=== PATIENT | female | born 1985 | race Caucasian/White ===

== ENCOUNTER 2016-08-27 16:08 | Emergency (ER) | payer OTHER ==
[2016-08-27 16:23] VITALS: BP 118/79
--- NOTE | 2016-08-27 16:37 | UC ---
Throat Pain/Nasal Sergio HPI - HPI Summary HPI Summary: complaint of sore throat that started 3 days ago nasal congestion has felt feverish and chills for 2 days -hasn't checked her temp intermittent headache denies coiugh and reatr pain has taken nyquil and dayquil without relief children have similiar illness - History of Current Complaint Chief Complaint: UCGeneralIllness Stated Complaint: SORE THROAT/HEADACHE/ABD PAIN Time Seen by Provider: 08/27/16 16:31 Hx Obtained From: Patient - Allergies/Home Medications Allergies/Adverse Reactions: Allergies Allergy/AdvReac Type Severity Reaction Status Date / Time No Known Allergies Allergy Verified 09/29/14 12:34 Home Medications: Home Medications Omeprazole CAP* [Prilosec CAP* 20 MG] 20 mg PO DAILY 08/27/16 [History Confirmed 08/27/16] Venlafaxine TAB (NF) [Effexor TAB (NF)] 20 mg PO DAILY 08/27/16 [History Confirmed 08/27/16] PMH/Surg Hx/FS Hx/Imm Hx Previously Healthy: Yes - Surgical History Surgical History: None - Family History Known Family History: Negative: Cardiac Disease, Hypertension, Diabetes - Social History Lives: With Family Alcohol Use: Occasionally Substance Use Type: None Smoking Status (MU): Former Smoker Review of Systems Constitutional: Chills Skin: Negative Eyes: Negative ENT: Sore Throat, Nasal Discharge Respiratory: Negative Cardiovascular: Negative Gastrointestinal: Negative Genitourinary: Negative Motor: Negative Neurovascular: Negative Musculoskeletal: Negative Neurological: Negative Psychological: Negative All Other Systems Reviewed And Are Negative: Yes Physical Exam Triage Information Reviewed: Yes Appearance: No Pain Distress, Well-Nourished, Obese Vital Signs: Initial Vital Signs Temp 98.9 F 08/27/16 16:17 Pulse 95 08/27/16 16:17 Resp 16 08/27/16 16:17 BP 118/79 08/27/16 16:17 Pulse Ox 100 08/27/16 16:17 Vital Signs Reviewed: Yes Eyes: Positive: Conjunctiva Clear ENT: Positive: Pharyngeal erythema, Nasal congestion, TMs normal, TM red, Tonsillar swelling, Tonsillar exudate Neck: Positive: Enlarged Nodes @ - cervical lymphadenopathy bilaterally Respiratory: Positive: Lungs clear, Normal breath sounds, No respiratory distress Cardiovascular: Positive: RRR, No Murmur, Pulses Normal Abdomen Description: Positive: Nontender, Soft, Distended. Negative: Guarding Bowel Sounds: Positive: Present Musculoskeletal: Positive: No Edema Neurological: Positive: Alert Psychological Exam: Normal Skin Exam: Normal Throat Pain/Nasal Course/Dx - Differential Dx/Diagnosis Differential Diagnosis/HQI/PQRI: Mononucleosis, Pharyngitis, Tonsillitis Provider Diagnoses: strep pharyngitis Discharge - Discharge Plan Condition: Stable Disposition: HOME Patient Education Materials: Strep Throat (ED) Referrals: Tenisha Diaz RN [Primary Care Provider] - Additional Instructions: Please take antibiotic as directed. Increase fluids and rest Take acetaminophen or ibuprofen for fever or pain Please review your discharge instructions. If your symptoms do not improve please call your primary care provider or return to urgent care.
== END 2016-08-27 17:00 | disposition home or self-care (01) ==
LOC: UCCORT 16:08
DX: J02.0 Streptococcal pharyngitis (principal); Z87.891 Personal history of nicotine dependence
CPT/HCPCS: 87651; 99212; G0463

== ENCOUNTER 2018-10-06 15:25 | Emergency (ER) | payer OTHER ==
[2018-10-06 16:10] VITALS: BP 114/73
== END 2018-10-06 17:28 | disposition left against medical advice (07) ==
LOC: UCCORT 15:25
DX: Z53.21 Procedure and treatment not carried out due to patient leaving prior to being seen by health care provider (principal)